=== PATIENT | male | born 1990 ===

== ENCOUNTER 2018-12-31 16:22 | Outpatient (REF) | payer BC, SELFPAY ==
[2018-12-31 21:33] LABS: Abs Immature Grans 0.02 k/cumm (0.0-0.09); Absolute Basophil Count 0.02 k/cumm (0.0-0.2); Absolute Eosinophil Count 0.07 k/cumm (0.0-0.7); Absolute Monocyte Count 0.62 k/cumm (0.11-0.7); Absolute Neutrophil Count 5.98 k/cumm (1.2-6.7); Basophils % 0.2; Eosinophils % 0.8; HCT 43.3 % (40.0-50.0); HGB 15.3 g/dL (13.5-17.5); Immature Grans % 0.2; Lymphocytes % 27.1; Mean Corp. HGB Concentration 35.3 g/dL (32.0-36.0); Mean Corpuscular Hemoglobin 29.7 pg (27.0-33.0); Mean Corpuscular Volume 84.1 fL (80-95); Mean Platelet Volume 10.6 fL (8.0-11.0); Monocytes % 6.7; Platelet Count 273 x1000/uL (130-400); RBC 5.15 m/cumm (4.50-6.00); RBC Distribution Width 12.3 % (11.8-14.1); White Blood Cell Count 9.21 k/cumm (4.4-10.8)
[2018-12-31 21:46] LABS: Mono Screening Negative (Negative)
[2018-12-31 21:53] LABS: ALT 23 U/L (12-78); AST 12 U/L (15-37); Albumin 4.4 g/dL (3.4-5.0); Alkaline Phosphatase 58 U/L (46-116); Anion Gap 15.2 mmol/L (3-11); BUN 16 mg/dL (7-18); Bilirubin, Total 0.6 mg/dL (0.2-1.0); CO2 23.8 mmol/L (21.0-32.0); CREATININE 1.02 mg/dL (0.70-1.30); Calcium 9.6 mg/dL (8.5-10.1); Chloride 104 mmol/L (98-107); Glucose 93 mg/dL (70-100); Potassium 3.9 mmol/L (3.5-5.1); Sodium 143 mmol/L (136-145); TSH 3.03 uIU/mL (0.358-3.74); Total Protein 7.6 g/dL (6.4-8.2)
== END 2018-12-31 16:42 ==
LOC: NCHCN 16:22
PROVIDERS: PCP Internal Medicine; Visit Provider Internal Medicine
DX: R05 Cough (principal); R53.83 Other fatigue
CPT/HCPCS: 80053; 84443; 85025; 86308